=== PATIENT | female | born 1955 | race Two or more races ===

== ENCOUNTER 2019-09-28 15:03 | Outpatient (CLI) | payer OTHER | END 2019-09-28 15:30 | disposition home or self-care (01) | LOC: OFIC 805 15:03 | PROVIDERS: ATTEND Otolaryngology | DX: J39.2 Other diseases of pharynx (principal); R07.0 Pain in throat; J02.8 Acute pharyngitis due to other specified organisms; H61.23 Impacted cerumen, bilateral; C85.99 Non-Hodgkin lymphoma, unspecified, extranodal and solid organ sites ==